=== PATIENT | female | born 1960 | race Caucasian/White ===

== ENCOUNTER 2017-06-10 15:24 | Observation (INO) | payer OTHER ==
[~2017-06-10] VITALS: Ht 177.8 cm; Wt 60.0 kg
[~2017-06-10 15:24] MED LIST: AMIT25TA9 PO; BUTA1CAP5 PO; CITA10TA4 PO; GABA600T PO; PHEN100C PO; SUMA100T2 PO; TOPI1TAB36 PO
[2017-06-10 15:32] VITALS: BP 117/62; PULSE 60; RESP 20; TEMP 97.7; O2SAT 98
[2017-06-10] MEDS ORDERED: SODIUM CHLOR 0.9% 1000 ML INJ 1,000 ML IV SCH (15:46)
[2017-06-10] MEDS ORDERED: PROCHLORPERAZINE INJ 10 MG/2 ML VIAL IV PUSH ONE (16:00)
[2017-06-10] MEDS ORDERED: diphenhydrAMINE HCL 50 MG/ML VIAL IV PUSH ONE (16:00)
--- NOTE | 2017-06-10 16:29 | RADRPT ---
EXAM DATE/TIME: 06/10/2017 15:55 [facility] COMPARISON: No previous studies available for comparison. INDICATIONS : Fainted today. MEDICAL HISTORY : None. SURGICAL HISTORY : None. ENCOUNTER: Initial ACUITY: 1 day PAIN SCORE: Non-responsive. LOCATION: Bilateral chest FINDINGS: There is mild central interstitial prominence. No evidence of alveolar consolidation or effusion. Car diomediastinal contours are satisfactory. CONCLUSION: Mild central interstitial thickening, primarily on the left. This may indicate early bronchitic colindres es. Antwon Lares MD on June 10, 2017 at 16:26 Board Certified Radiologist. This report was verified electronically.
[2017-06-10] MEDS ORDERED: DEXTROSE 25% IN WATER 10 ML SYRINGE IV PUSH ONE (16:30)
--- NOTE | 2017-06-10 16:36 | PD ---
HPI Chief Complaint: Syncope/Near-Syncope Time Seen by Provider: 16:30 Travel History International Travel<30 days: No Contact w/Intl Traveler<30days: No Traveled to known affect area: No History of Present Illness HPI 56-year-old female that presents to the ED for evaluation of syncope. Patient has a history of syncopal episodes in the past. Patient has apparently been worked up for this in the past and is currently following with Dr. Pan for evaluation. Per patient she does have an appointment today. Per patient she has episodes where she essentially passes out. Patient states that Dr. Lundberg diagnosed with possible seizure disorder but she wanted a second opinion sugars she transferred to a different neurologist. She states that she continues to have the syncopal episodes. Per patient she usually gets a headache afterwards. She states that she has a severe headache which she calls a migraine headache which is having the past. Per patient feels like a pressure. She denies any nausea or vomiting. She does feel lightheaded and weak. She is able to provide most of the information. Per patient the pain is 7 out of 10. No fevers chills or sweats. No head injury today. She had apparently 2 episodes today at a local restaurant and ambulance was contacted and apparently she did not want to come during the initial one but she has another one will ambulance was evaluating her and then she agreed to come. No other medical issues. PFSH Past Medical History Cancer: No Diabetes: No Fibromyalgia: Yes Gastrointestinal Disorders: Yes (COLITIS) Glaucoma: No Hepatitis: No Hypertension: No Neurologic: Yes (RESTLESS LEG SYNDRONE) Seizures: Yes Thyroid Disease: No Menopausal: Yes Past Surgical History Abdominal Surgery: Yes (LAPAROSCOPY) Appendectomy: Yes Section: Yes (X 1) Gynecologic Surgery: Yes () Pacemaker: No Social History Alcohol Use: No Tobacco Use: Yes (1 PPD) Substance Use: No Allergies-Medications (Allergen,Severity, Reaction): Coded Allergies: No Known Allergies (Verified , 12/08/16) Reported Meds & Prescriptions Reported Meds & Active Scripts Active Reported Sumatriptan (Sumatriptan Succinate) 100 Mg Tab 100 Mg PO ONCE PRN If a satisfactory response has not been obtained at 2 hours, a second dose may be administered Topiramate 50 Mg Tab 50 Mg PO BID Phenytoin Extended 100 Mg Cap 100 Mg PO TID Gabapentin 600 Mg Tab 600 Mg PO Q6HR Citalopram (Citalopram Hydrobromide) 10 Mg Tab 10 Mg PO DAILY Rewvdctvji-Bsgrgncdzaavs-Sybopgxw 50-300-40 Mg Cap 1 Cap PO Q4H PRN Do not exceed 6 capsules/day. Amitriptyline (Amitriptyline HCl) 25 Mg Tab 25 Mg PO HS Review of Systems Except as stated in HPI: all other systems reviewed are Neg Physical Exam Narrative GENERAL: SKIN: Warm and dry. HEAD: Atraumatic. Normocephalic. EYES: Pupils equal and round 4mm reactive to light and accomodation. No scleral icterus. No injection or drainage. ENT: No nasal bleeding or discharge. Mucous membranes pink and moist. Tongue is midline. No uvula deviation. NECK: Trachea midline. No JVD. CARDIOVASCULAR: Regular rate and rhythm. No murmurs, S3, S4. RESPIRATORY: No accessory muscle use. Clear to auscultation. Breath sounds equal bilaterally. GASTROINTESTINAL: Abdomen soft, non-tender, nondistended. Hepatic and splenic margins not palpable. MUSCULOSKELETAL: Extremities without clubbing, cyanosis, or edema. No obvious deformities. Full range of motion of the upper and lower extremities bilaterally. 2 + pulses bilaterally. NEUROLOGICAL: Awake and alert. No obvious cranial nerve deficits. Motor grossly within normal limits. Five out of 5 muscle strength in the arms and legs. Normal speech. PSYCHIATRIC: Appropriate mood and affect; insight and judgment normal. Data Data Last Documented VS Vital Signs Date Time Temp Pulse Resp B/P Pulse Ox O2 Delivery O2 Flow Rate FiO2 06/10/17 17:40 64 18 110/67 06/10/17 16:38 100 Room Air 06/10/17 15:32 97.7 Orders Complete Blood Count With Diff (06/10/17 15:46) Basic Metabolic Panel (Bmp) (06/10/17 15:46) Troponin I (06/10/17 15:46) Magnesium (Mg) (06/10/17 15:46) Thyroid Stimulating Hormone (06/10/17 15:46) Chest, Single Ap (06/10/17 15:46) Ct Brain W/O Iv Contrast(Rout) (06/10/17 15:46) Iv Access Insert/Monitor (06/10/17 15:46) Ecg Monitoring (06/10/17 15:46) Oximetry (06/10/17 15:46) Orthostatic Vital Signs (06/10/17 15:46) Prochlorperazine Inj (Compazine Inj) (06/10/17 16:00) Diphenhydramine Inj (Benadryl Inj) (06/10/17 16:00) Sodium Chlor 0.9% 1000 Ml Inj (Ns 1000 M (06/10/17 15:46) Electrocardiogram (06/10/17 15:46) Dextrose 25% In Water Inj (D25w Inj) (06/10/17 16:30) Admit Order (Ed Use Only) (06/10/17 17:33) Labs Laboratory Tests Test 06/10/17 16:25 White Blood Count 4.4 TH/MM3 Red Blood Count 4.35 MIL/MM3 Hemoglobin 13.5 GM/DL Hematocrit 39.4 % Mean Corpuscular Volume 90.5 FL Mean Corpuscular Hemoglobin 31.0 PG Mean Corpuscular Hemoglobin 34.2 % Concent Red Cell Distribution Width 13.9 % Platelet Count 213 TH/MM3 Mean Platelet Volume 7.6 FL Neutrophils (%) (Auto) 49.5 % Lymphocytes (%) (Auto) 39.7 % Monocytes (%) (Auto) 9.5 % Eosinophils (%) (Auto) 0.3 % Basophils (%) (Auto) 1.0 % Neutrophils # (Auto) 2.2 TH/MM3 Lymphocytes # (Auto) 1.7 TH/MM3 Monocytes # (Auto) 0.4 TH/MM3 Eosinophils # (Auto) 0.0 TH/MM3 Basophils # (Auto) 0.0 TH/MM3 CBC Comment DIFF FINAL Differential Comment Sodium Level 142 MEQ/L Potassium Level 3.6 MEQ/L Chloride Level 105 MEQ/L Carbon Dioxide Level 29.3 MEQ/L Anion Gap 8 MEQ/L Blood Urea Nitrogen 10 MG/DL Creatinine 0.73 MG/DL Estimat Glomerular Filtration 82 ML/MIN Rate Random Glucose 74 MG/DL Calcium Level 8.4 MG/DL Magnesium Level 2.6 MG/DL Troponin I LESS THAN 0.02 NG/ML Thyroid Stimulating Hormone 0.909 uIU/ML 3rd Gen [facility] Medical Decision Making Medical Screen Exam Complete: Yes Emergency Medical Condition: Yes Medical Record Reviewed: Yes Interpretation(s) CBC & BMP Diagram 06/10/17 16:25 EKG shows sinus rhythm with no sign of acute ischemia or arrythmia. Read by me and attending. troponin and CKMB negative Last Impressions Head CT 06/10/17 1546 Signed Impressions: Service Date/Time: Saturday, June 10, 2017 16:26 - CONCLUSION: Normal examination. Antwon Lares MD Chest X-Ray 06/10/17 1546 Signed Impressions: Service Date/Time: Saturday, June 10, 2017 15:55 - CONCLUSION: Mild central interstitial thickening, primarily on the left. This may indicate early bronchitic changes. Antwon Lares MD Differential Diagnosis Syncope versus chronic syncope versus seizure disorder versus headache versus [place] headache versus orthostatic hypotension versus ACS versus normal exam Narrative Course 56-year-old female that presents to the ED for evaluation of syncopal episode. Patient was properly examined and was found to have signs and symptoms consistent with appears to be syncope. Unclear etiology. She apparently has been seen by neurologist in the past and they have not been able to figure out what she has. I personally asked her and her whether she is have any wheezing imaging or workup recently and per family members they have not. She has not had a scan on her head in the past 2 years. No other medical issues reported at this time. Patient had another syncopal episode here where she lost consciousness after being given Compazine for her headache. My attending evaluated her and agrees with this plan. Labs and imaging were ordered. Patient was given IV fluids and dextrose as her sugar was 72. Labs and imaging here showed no sign of acute at this time. My attending Dr. Purdy spoke with the patient and family member and they agree with admission. Patient will be admitted to Dr. Doyle who agrees to admission for further evaluation of this. Diagnosis Primary Impression: Syncope Qualified Code: R55 - Syncope, unspecified syncope type Admitting Information Admitting Physician Requests: Observation Gil Jane Jun 10, 2017 16:36
[2017-06-10 16:38] VITALS: RESP 18; O2SAT 100
--- NOTE | 2017-06-10 16:42 | RADRPT ---
EXAM DATE/TIME: 06/10/2017 16:26 [facility] COMPARISON: No previous studies available for comparison. INDICATIONS : Cephalgia for one day with syncopal episodes and atonic seizures. RADIATION DOSE: 56.35 CTDIvol (mGy) MEDICAL HISTORY : Seizures. Fibromyalgia, Headaches. SURGICAL HISTORY : section. Fusion, lumbar. ENCOUNTER: Initial ACUITY: 1 day PAIN SCALE: 8/10 LOCATION: Bilateral cranial TECHNIQUE: Multiple contiguous axial images were obtained of the head. Using automated exposure control and adj ustment of the mA and/or kV according to patient size, radiation dose was kept as low as reasonably a chievable to obtain optimal diagnostic quality images. DICOM format image data is available electro nically for review and comparison. FINDINGS: CEREBRUM: The ventricles are normal for age. No evidence of midline shift, mass lesion, hemorrhage or acute in farction. No extra-axial fluid collections are seen. POSTERIOR FOSSA: The cerebellum and brainstem are intact. The 4th ventricle is midline. The cerebellopontine angle i s unremarkable. EXTRACRANIAL: The visualized portion of the orbits is intact. SKULL: The calvaria is intact. No evidence of skull fracture. CONCLUSION: Normal examination. Antwon Lares MD on June 10, 2017 at 16:40 Board Certified Radiologist. This report was verified electronically.
[2017-06-10 16:56] LABS: AUTOMATED NEUTROPHIL # 2.2 TH/MM3 (1.8-7.7); EOSINOPHIL % 0.3 % (0.0-4.0); HEMATOCRIT 39.4 % (35.0-46.0); HEMO FLAGS DIFF FINAL; LYMPH % 39.7 % (9.0-44.0); LYMPHOCYTE # 1.7 TH/MM3 (1.0-4.8); MEAN CELL VOLUME 90.5 FL (80.0-100.0); MEAN CORPUSCULAR HGB CONC 34.2 % (32.0-36.0); MONO % 9.5 % (0.0-8.0); NEUT % 49.5 % (16.0-70.0); PLATELET COUNT 213 TH/MM3 (150-450); RED BLOOD COUNT 4.35 MIL/MM3 (4.00-5.30); RED CELL DISTRIBUTION WIDTH 13.9 % (11.6-17.2); WHITE BLOOD COUNT 4.4 TH/MM3 (4.0-11.0)
[2017-06-10 17:16] LABS: ANION GAP 8 MEQ/L (5-15); BICARBONATE 29.3 MEQ/L (21.0-32.0); BLOOD UREA NITROGEN 10 MG/DL (7-18); CHLORIDE 105 MEQ/L (98-107); GLOMERULAR FILTRATION RATE 82 ML/MIN (>89); MAGNESIUM 2.6 MG/DL (1.5-2.5); POTASSIUM 3.6 MEQ/L (3.5-5.1); SODIUM (NA) 142 MEQ/L (136-145)
[2017-06-10 17:36] VITALS: BP 106/57
[2017-06-10 17:38] VITALS: BP 113/69
[2017-06-10 17:40] VITALS: BP 110/67; RESP 18
--- NOTE | 2017-06-10 17:46 | PD ---
Physical Exam Narrative GENERAL: Well-nourished, well-developed patient. SKIN: Warm and dry. HEAD: Normocephalic and atraumatic. EYES: No injection or drainage. ENT: No nasal drainage noted. NECK: Supple, trachea midline. CARDIOVASCULAR: Regular rate and rhythm RESPIRATORY: Breath sounds equal bilaterally. No accessory muscle use. EXTREMITIES: No edema. NEUROLOGICAL: Awake and alert. Motor and sensory grossly within normal limits. Normal speech. Data Data Last Documented VS Vital Signs Date Time Temp Pulse Resp B/P Pulse Ox O2 Delivery O2 Flow Rate FiO2 06/10/17 17:40 64 18 110/67 06/10/17 16:38 100 Room Air 06/10/17 15:32 97.7 Orders Complete Blood Count With Diff (06/10/17 15:46) Basic Metabolic Panel (Bmp) (06/10/17 15:46) Troponin I (06/10/17 15:46) Magnesium (Mg) (06/10/17 15:46) Thyroid Stimulating Hormone (06/10/17 15:46) Chest, Single Ap (06/10/17 15:46) Ct Brain W/O Iv Contrast(Rout) (06/10/17 15:46) Iv Access Insert/Monitor (06/10/17 15:46) Ecg Monitoring (06/10/17 15:46) Oximetry (06/10/17 15:46) Orthostatic Vital Signs (06/10/17 15:46) Prochlorperazine Inj (Compazine Inj) (06/10/17 16:00) Diphenhydramine Inj (Benadryl Inj) (06/10/17 16:00) Sodium Chlor 0.9% 1000 Ml Inj (Ns 1000 M (06/10/17 15:46) Electrocardiogram (06/10/17 15:46) Dextrose 25% In Water Inj (D25w Inj) (06/10/17 16:30) Admit Order (Ed Use Only) (06/10/17 17:33) Labs Laboratory Tests Test 06/10/17 16:25 White Blood Count 4.4 TH/MM3 Red Blood Count 4.35 MIL/MM3 Hemoglobin 13.5 GM/DL Hematocrit 39.4 % Mean Corpuscular Volume 90.5 FL Mean Corpuscular Hemoglobin 31.0 PG Mean Corpuscular Hemoglobin 34.2 % Concent Red Cell Distribution Width 13.9 % Platelet Count 213 TH/MM3 Mean Platelet Volume 7.6 FL Neutrophils (%) (Auto) 49.5 % Lymphocytes (%) (Auto) 39.7 % Monocytes (%) (Auto) 9.5 % Eosinophils (%) (Auto) 0.3 % Basophils (%) (Auto) 1.0 % Neutrophils # (Auto) 2.2 TH/MM3 Lymphocytes # (Auto) 1.7 TH/MM3 Monocytes # (Auto) 0.4 TH/MM3 Eosinophils # (Auto) 0.0 TH/MM3 Basophils # (Auto) 0.0 TH/MM3 CBC Comment DIFF FINAL Differential Comment Sodium Level 142 MEQ/L Potassium Level 3.6 MEQ/L Chloride Level 105 MEQ/L Carbon Dioxide Level 29.3 MEQ/L Anion Gap 8 MEQ/L Blood Urea Nitrogen 10 MG/DL Creatinine 0.73 MG/DL Estimat Glomerular Filtration 82 ML/MIN Rate Random Glucose 74 MG/DL Calcium Level 8.4 MG/DL Magnesium Level 2.6 MG/DL Troponin I LESS THAN 0.02 NG/ML Thyroid Stimulating Hormone 0.909 uIU/ML 3rd Gen [facility] Supervised Visit with AMARJIT: Yes Interpretation(s) CBC & BMP Diagram 06/10/17 16:25 Last [address] 06/10/17 1546 Signed Impressions: Service Date/Time: Saturday, June 10, 2017 16:26 - CONCLUSION: Normal examination. Antwon Lares MD Chest X-Ray 06/10/17 1546 Signed Impressions: Service Date/Time: Saturday, June 10, 2017 15:55 - CONCLUSION: Mild central interstitial thickening, primarily on the left. This may indicate early bronchitic changes. Antwon Lares MD Narrative Course I, Dr. purdy, have reviewed the advance practice practitioner's documentation and am in agreement, met with the patient face to face, made the diagnosis, and the medical decision making was done by me. *My assessment and Findings: 56-year-old female presents after having a syncopal event. While she was here awaiting testing she had an additional event where she went unresponsive and her eyes rolled back in her head but she had no tonic-clonic movements. She was unresponsive for a couple of minutes and then when she awoke report was that she was not confused. Given she had 2 episodes within a short time frame she will be monitored in the hospital for further care Diagnosis Primary Impression: Syncope Qualified Code: R55 - Syncope, unspecified syncope type Nataliia Purdy MD Jun 10, 2017 17:46
[2017-06-10 18:00] VITALS: BP 112/66; PULSE 61; RESP 18; O2SAT 97
[2017-06-10] MEDS ORDERED: NALOXONE HCL 0.4 MG/ML AMP IV PRN (18:00)
[2017-06-10] MEDS ORDERED: ACETAMINOPHEN 325 MG TAB PO PRN (18:00)
[2017-06-10] MEDS ORDERED: ACETAMIN 325 MG/BUTALBITAL 50 MG/CAFFEINE 40 MG TAB PO PRN (18:00)
[2017-06-10] MEDS ORDERED: LACTULOSE SYRUP 20 GM/30 ML CUP PO PRN (18:00)
[2017-06-10] MEDS ORDERED: SUMAtriptan SUCCINATE 50 MG TAB PO PRN (18:00)
[2017-06-10] MEDS ORDERED: MAGNESIUM HYDROXIDE SUSP 30 ML CUP PO PRN (18:00)
[2017-06-10] MEDS ORDERED: BISACODYL 10 MG SUPP RECTAL PRN (18:00)
[2017-06-10] MEDS ORDERED: ONDANSETRON HCL 4 MG/2 ML VIAL IVP PRN (18:00)
[2017-06-10] MEDS ORDERED: SENNOSIDES 8.6 MG TAB PO PRN (18:00)
[2017-06-10] MEDS ORDERED: SODIUM CHLORIDE 0.9% FLUSH 10 ML FLUSH IV FLUSH PRN (18:00)
[2017-06-10] MEDS ORDERED: PILL SPLITTER OTHER PRN (19:45)
[2017-06-10] MEDS ORDERED: SODIUM CHLOR 0.45% 1000 ML INJ 1,000 ML IV SCH (20:00)
[2017-06-10] MEDS ORDERED: PHENYTOIN SODIUM 100 MG CAP PO SCH (20:00)
[2017-06-10] MEDS ORDERED: GABAPENTIN 300 MG CAP PO SCH (21:00)
[2017-06-10] MEDS ORDERED: SODIUM CHLORIDE 0.9% FLUSH 10 ML FLUSH IV FLUSH SCH (21:00)
[2017-06-10] MEDS ORDERED: AMITRIPTYLINE HCL 25 MG TAB PO SCH (21:00)
[2017-06-10] MEDS ORDERED: DOCUSATE SODIUM 50 MG/SENNA 8.6 MG TAB PO SCH (21:00)
[2017-06-10] MEDS ORDERED: TOPIRAMATE 25 MG TAB PO SCH (21:00)
[2017-06-11] MEDS ORDERED: CITALOPRAM HYDROBROMIDE 20 MG TAB PO SCH (09:00)
--- NOTE | 2017-06-11 17:19 | EKG ---
Date Performed: 06/10/2017 Time Performed: 16:48:18 PTAGE: 56 years EKG: Sinus rhythm LOW QRS VOLTAGE IN PRECORDIAL LEADS PROLONGED QT INTERVAL ABNORMAL ECG Compared to prior tracing no significant change PREVIOUS TRACING : 03/12/2011 14.32 DOCTOR: Yaron Singh Interpretating Date/Time 06/11/2017 17:16:12
[2017-06-23] MEDS ORDERED: MORP1TAB24 PO ×2 (12:43)
[2017-06-23] MEDS ORDERED: PERC5TAB12 PO (12:43)
[2017-06-23] MEDS ORDERED: CITA10TA4 PO (12:43)
[2017-06-23] MEDS ORDERED: SUMA25TA2 PO (12:43)
[2017-06-23] MEDS ORDERED: NEUR100C PO (12:43)
[2017-06-23] MEDS ORDERED: ZANA2CAP PO (12:43)
== END 2017-06-10 20:04 | disposition left against medical advice (07) ==
LOC: NEPE 15:24 → NEDH 17:34 → NEDA 17:35 → UNDOADMOB 17:35
PROVIDERS: ADMIT Hospitalist; ATTEND Hospitalist
DX: R55 Syncope and collapse (principal); K52.9 Noninfective gastroenteritis and colitis, unspecified; G25.81 Restless legs syndrome; R51 Headache; R91.8 Other nonspecific abnormal finding of lung field; R94.31 Abnormal electrocardiogram [ECG] [EKG]; M79.7 Fibromyalgia
CPT/HCPCS: 70450; 71010; 80048; 83735; 84443; 84484; 85025; 93005; 96361; 96374; 96375; 99285; G0378; J0780; J1200; J7030

== ENCOUNTER 2017-06-13 13:28 | Emergency (ER) | payer OTHER ==
[~2017-06-13] VITALS: Ht 170.2 cm; Wt 67.0 kg
[2017-06-13 13:30] VITALS: BP 116/65; PULSE 78; RESP 18; TEMP 98; O2SAT 96
[2017-06-13] MEDS ORDERED: diphenhydrAMINE HCL 50 MG/ML VIAL IV PUSH ONE (13:45)
[2017-06-13] MEDS ORDERED: PROCHLORPERAZINE INJ 10 MG/2 ML VIAL IV PUSH ONE (13:45)
[2017-06-13] MEDS ORDERED: SODIUM CHLOR 0.9% 1000 ML INJ 1,000 ML IV ONE (13:45)
--- NOTE | 2017-06-13 13:48 | PD ---
HPI Chief Complaint: Headache Time Seen by Provider: 13:36 Travel History International Travel<30 days: No Contact w/Intl Traveler<30days: No Traveled to known affect area: No History of Present Illness HPI This is a 56-year-old female with a history of migraine headaches, seizure disorder, who presents via EMS from the neurologists office after she had a syncopal episode. The patient's currently being worked up for "atonic seizures ". She states that when she was over there they were performing an EEG when she all of a sudden went unresponsive. She states that she could hear them talking to her and feel them poking on her however she states that she could not respond. She is back to baseline today. She reports a headache. She states when she was seen here on Tuesday for the same thing, they gave her Benadryl and Compazine which made her feel much improved. There are no other symptoms at the time of my examination. There is no loss of bowel or bladder function. PFSH Past Medical History Cancer: No Diabetes: No Fibromyalgia: Yes Gastrointestinal Disorders: Yes (COLITIS) Glaucoma: No Hepatitis: No Hypertension: No Neurologic: Yes (RESTLESS LEG SYNDRONE) Seizures: Yes Thyroid Disease: No Menopausal: Yes Past Surgical History Abdominal Surgery: Yes (LAPAROSCOPY) Appendectomy: Yes Section: Yes (X 1) Gynecologic Surgery: Yes () Pacemaker: No Other Surgery: No Social History Alcohol Use: No Tobacco Use: No Substance Use: No Allergies-Medications (Allergen,Severity, Reaction): Coded Allergies: No Known Allergies (Verified , 06/13/17) Reported Meds & Prescriptions Reported Meds & Active Scripts Active Reported Topiramate 50 Mg Tab 50 Mg PO BID Phenytoin Extended 100 Mg Cap 100 Mg PO TID Gabapentin 600 Mg Tab 600 Mg PO Q6HR Lgeiqogrzw-Euaaysodptrak-Aauhnpyt 50-300-40 Mg Cap 1 Cap PO Q4H PRN Do not exceed 6 capsules/day. Review of Systems Except as stated in HPI: all other systems reviewed are Neg Eyes: Positive: Photophobia, No: Diploplia, Blurred Vision HENT: Positive: Headaches, No: Neck Pain Cardiovascular: No: Chest Pain or Discomfort (bifrontal), Palpitations Respiratory: No: Cough, Shortness of Breath Gastrointestinal: Positive: Nausea, No: Vomiting, Abdominal Pain Musculoskeletal: No: Myalgias, Weakness, Pain Physical Exam Narrative GENERAL: Well-developed well-nourished female in no acute rest her stress SKIN: Focused skin assessment warm/dry. HEAD: Atraumatic. Normocephalic. EYES: mild photophobia. No scleral icterus. No injection or drainage. ENT: No nasal bleeding or discharge. Mucous membranes pink and moist. NECK: Trachea midline. Supple. CARDIOVASCULAR: Regular rate and rhythm. No murmur appreciated. RESPIRATORY: No accessory muscle use. Clear to auscultation. Breath sounds equal bilaterally. GASTROINTESTINAL: Abdomen soft, non-tender, nondistended. Hepatic and splenic margins not palpable. MUSCULOSKELETAL: No obvious deformities. No clubbing. No cyanosis. No edema. NEUROLOGICAL: Awake and alert. No obvious cranial nerve deficits. Motor grossly within normal limits. Normal speech. Data Data Last Documented VS Vital Signs Date Time Temp Pulse Resp B/P Pulse Ox O2 Delivery O2 Flow Rate FiO2 06/13/17 15:05 60 16 104/56 94 Room Air 06/13/17 13:30 98.0 Orders Diphenhydramine Inj (Benadryl Inj) (06/13/17 13:45) Prochlorperazine Inj (Compazine Inj) (06/13/17 13:45) Sodium Chlor 0.9% 1000 Ml Inj (Ns 1000 M (06/13/17 13:45) MDM Medical Decision Making Medical Screen Exam Complete: Yes Emergency Medical Condition: Yes Differential Diagnosis Migraine variant versus atypical seizure versus vasovagal syncope Narrative Course 86-year-old female with a history of traumatic brain injury in the past, seizure disorder, complex migraine headaches, who presents here after having a syncopal episode while at the neurologists office. The patient's had several of these episodes including last Tuesday when she was seen and evaluated here hospital. The patient has been given 50 mg Benadryl and 10 mg of Compazine. She had a noted episode that was similar to what she had in the neurologists office. I spoke with both her and her offered admission. They wish to go home and follow up as an outpatient with a neurologist. They're thinking they may go to [place] where they have a neurological Center. I again offered to keep her here for observation however again they wish to go home. states she will be with her elevating changes she'll bring her back. Diagnosis Primary Impression: Syncope Additional Impression: History of seizure disorder Additional Instructions: Return as needed. Follow up with neurologist. Disposition: 01 DISCHARGE HOME Condition: Stable José Miguel Olsen MD Jun 13, 2017 13:47
[2017-06-13 14:16] VITALS: BP 132/75; PULSE 68; RESP 16; O2SAT 98
[2017-06-13 15:05] VITALS: BP 104/56; PULSE 60; RESP 16; O2SAT 94
[2017-06-23] MEDS ORDERED: MORP1TAB24 PO ×2 (12:43)
[2017-06-23] MEDS ORDERED: CITA10TA4 PO (12:43)
[2017-06-23] MEDS ORDERED: ZANA2CAP PO (12:43)
[2017-06-23] MEDS ORDERED: PERC5TAB12 PO (12:43)
[2017-06-23] MEDS ORDERED: NEUR100C PO (12:43)
[2017-06-23] MEDS ORDERED: SUMA25TA2 PO (12:43)
== END 2017-06-13 15:38 | disposition home or self-care (01) ==
LOC: PHED 13:28
DX: R55 Syncope and collapse (principal); G40.909 Epilepsy, unspecified, not intractable, without status epilepticus; M79.7 Fibromyalgia; G25.81 Restless legs syndrome
CPT/HCPCS: 96374; 96375; 99284; J0780; J1200; J7030

== ENCOUNTER 2017-06-22 13:34 | Emergency (ER) | payer OTHER ==
[~2017-06-22] VITALS: Ht 170.2 cm; Wt 66.7 kg
[~2017-06-22 13:34] MED LIST changes: -AMIT25TA9 PO; -CITA10TA4 PO; -SUMA100T2 PO
[2017-06-22 13:50] VITALS: BP 112/74; PULSE 75; RESP 16; TEMP 98.5; O2SAT 97
[2017-06-22 16:06] VITALS: BP 95/53; PULSE 60; RESP 16; O2SAT 97
--- NOTE | 2017-06-22 16:09 | PD ---
HPI Chief Complaint: Pain: Acute or Chronic Time Seen by Provider: 14:17 Travel History International Travel<30 days: No Contact w/Intl Traveler<30days: No Traveled to known affect area: No History of Present Illness HPI This is a 56 year-old woman presents emergent from left upper extremity pain after she had an IV placed in her wrist on the . She is pain and tenderness on the side of the pain. She feels like the pain is more full. She does also endorse some upper shotty swelling. History Past Medical History Narrative Medical Migraines Seizures Fibromyalgia Restless leg syndrome Influenza Vaccination: No Menopausal: Yes Social History Alcohol Use: No Tobacco Use: No Allergies-Medications (Allergen,Severity, Reaction): Coded Allergies: No Known Allergies (Verified , 06/22/17) Reported Meds & Prescriptions Reported Meds & Active Scripts Active Reported Topiramate 50 Mg Tab 50 Mg PO BID Phenytoin Extended 100 Mg Cap 100 Mg PO TID Gabapentin 600 Mg Tab 600 Mg PO Q6HR Eeobnvnrhj-Dibfhhsdsqdfl-Tcmbqjkd 50-300-40 Mg Cap 1 Cap PO Q4H PRN Do not exceed 6 capsules/day. Review of Systems Except as stated in HPI: all other systems reviewed are Neg Physical Exam Narrative GENERAL: Well-appearing 56 year-old woman, no acute distress. SKIN: Warm and dry. CARDIOVASCULAR: Warm and well perfused. RESPIRATORY: Normal rate and effort. MUSCULOSKELETAL: Examination left upper extremity is grossly normal. There is no obvious swelling or edema or redness. She has tenderness over the course of the pain on the left forearm forearm. The does appear to be an indurated vein in the same area. There is no erythema or redness. NEUROLOGICAL: Awake and alert. No gross deficits. Data Data Last Documented VS Vital Signs Date Time Temp Pulse Resp B/P (MAP) Pulse Ox O2 Delivery O2 Flow Rate FiO2 06/22/17 13:50 98.5 75 16 112/74 (87) 97 Orders Orders Us Arm Venous Doppler (06/22/17 ) [facility] Medical Decision Making Medical Screen Exam Complete: Yes Emergency Medical Condition: Yes Differential Diagnosis Superficial thrombophlebitis, DVT, other Narrative Course Medical decision making 48 year-old woman clinically a superficial normal phlebitis. I reviewed the ultrasound results. They seem to be consistent with thrombophlebitis. Await final read. We'll discharge. Diagnosis Primary Impression: Thrombophlebitis Additional Instructions: Take an enteric-coated aspirin daily, preferably full dose, or two enteric- coated baby 81 mg aspirin. Follow-up with her primary doctor in 2-4 days. Apply warm compresses 2-3 times daily as discussed. Med/Other Pt SpecificInfo: No Change to Meds Disposition: 01 DISCHARGE HOME Condition: Stable Olu Lopez MD Jun 22, 2017 16:09
--- NOTE | 2017-06-22 16:50 | RADRPT ---
EXAM DATE/TIME: 06/22/2017 15:12 [facility] COMPARISON: No previous studies available for comparison. INDICATIONS : Left arm pain and palpable vein in lower arm. MEDICAL HISTORY : Seizures. Colitis. Fibromyalgia. SURGICAL HISTORY : section. Laparoscopy. Spinal fusion. ENCOUNTER: Initial ACUITY: 1 week PAIN SCORE: 4/10 LOCATION: Left arm. FINDINGS: There is spontaneous flow documented in the brachial, basilic, axillary, and subclavian veins. The v essels are compressible and augmentation response is documented. No filling defects are seen. The f low is phasic with respiration. Direction of flow in the jugular vein is caudal. However, occlusive thrombus is identified in the cephalic vein in the forearm and wrist. CONCLUSION: 1. Superficial thrombosis of the cephalic vein in the forearm and wrist. 2. No DVT. Jose Nelson MD on June 22, 2017 at 16:23 Board Certified Radiologist. This report was verified electronically.
[2017-06-23] MEDS ORDERED: MORP1TAB24 PO ×2 (12:43)
[2017-06-23] MEDS ORDERED: NEUR100C PO (12:43)
[2017-06-23] MEDS ORDERED: ZANA2CAP PO (12:43)
[2017-06-23] MEDS ORDERED: SUMA25TA2 PO (12:43)
[2017-06-23] MEDS ORDERED: PERC5TAB12 PO (12:43)
[2017-06-23] MEDS ORDERED: CITA10TA4 PO (12:43)
== END 2017-06-22 16:27 | disposition home or self-care (01) ==
LOC: PHED 13:34
DX: I80.8 Phlebitis and thrombophlebitis of other sites (principal); G25.81 Restless legs syndrome; M79.7 Fibromyalgia; R56.9 Unspecified convulsions
CPT/HCPCS: 93971; 99284